=== PATIENT | female | born 1970 | race Caucasian/White ===

== ENCOUNTER 2016-11-07 14:24 | Emergency (ER) | payer BC ==
[~2016-11-07] VITALS: Ht 175.3 cm; Wt 127.1 kg
[2016-11-07 14:26] VITALS: TEMP 36.8; Ht 175.3 cm; Wt 127.1 kg
[2016-11-07] MEDS ORDERED: SODIUM CHLORIDE 0.9% 1000ML 2,000 ML IV STA (15:00)
[2016-11-07] MEDS ORDERED: ONDANSETRON INJ 2 MG/ML 2 ML VIAL IV STA (15:00)
[2016-11-07] MEDS ORDERED: KETOROLAC TROMETHAMINE 30 MG/ML VIAL IV STA (15:00)
[2016-11-07] MEDS ORDERED: MoRPHine SULFATE 4 MG/ML 1 ML CARP\\VIAL IV STA (15:00)
[2016-11-07] MEDS ORDERED: SODIUM CHLORIDE 0.9% 1000ML 1,000 ML IV STA (15:10)
[2016-11-07] MEDS ORDERED: GI COCKTAIL PO STA (15:11)
[2016-11-07 15:14] LABS: BASO ABS # 0.07 K/uL (0-0.2); COMPLETE YES; EOS % 5.5 %; HEMATOCRIT 40.9 % (37-47); IG% 0.1 %; LYMPH % 24.8 %; LYMPH ABS # 1.74 K/uL (1.2-3.4); MEAN CELL VOLUME 90.7 fL (80-100); MEAN CORPUSCULAR HEMOGLOBIN 30.6 pg (25-34); MEAN CORPUSCULAR HGB CONC 33.7 g/dl (32-36); MEAN PLATELET VOLUME 10.7 fL (7.4-10.4); MONO % 8.7 %; NEUT % 59.9 %; PLATELET COUNT 222 K/uL (130-400); RED BLOOD COUNT 4.51 M/uL (4.2-5.4); WHITE BLOOD COUNT 7.03 K/uL (4.8-10.8)
[2016-11-07] MEDS ORDERED: ALUMINUM/MAGNESIUM SUSP 30 ML UDC ONE (15:14)
[2016-11-07] MEDS ORDERED: LIDOCAINE HCL 2% VISC SOLN 20 ML UDC ONE (15:14)
[2016-11-07] MEDS ORDERED: METO25TA56 PO (15:21)
[2016-11-07] MEDS ORDERED: FURO-85 PO (15:21)
[2016-11-07] MEDS ORDERED: MULT-513 PO (15:21)
[2016-11-07 15:30] LABS: BUN/CREATININE RATIO 12.6 (10-20); CREATININE 0.98 mg/dl (0.60-1.20); POTASSIUM 3.9 mmol/L (3.5-5.1)
--- NOTE | 2016-11-07 15:49 | EMERGENCY ROOM VISIT NOTE ---
History Report prepared by Rich: Chuck Mendiola Under the Supervision of: Dr. John Nicholson D.O. First contact with patient: 14:50 Chief Complaint: GI ASSESSMENT Stated Complaint: PAIN WHEN EAT/DRINK, POSS. BLOCKAGE, GASTRIC BYPAS Nursing Triage Summary: per triage: pt c/o epigastric pain "burning sensation" after eating meals for past week. pt c/o worsening symptoms today. pt denies n/v/d. History of Present Illness The patient is a 46 year old female who presents to the Emergency Room with complaints of worsening epigastric pain that started around 6 days ago. She says that whenever she eats or drinks, she gets a stabbing pain below her breast bone, and the pain can get severe. The patient states that the pain started getting much worse 4 days ago, and she has stopped eating for the most part. She says that she has never had something like this before. The patient's last bowel movement was yesterday, and there have not been any major changes in her stool. She notes that she had a gastric bypass in 2011. The patient still has her gallbladder, appendix, and both her ovaries. She has no history of ulcers or an obstruction. The patient denies any vomiting. She has type 2 diabetes, and she says that her sugars tend to drop very rapidly. Source of History: patient Onset: 6 days ago Position: abdomen (epigastric) Quality: stabbing Timing: worsening Modifying Factors (Worsening): eating, drinking Associated Symptoms: No vomiting Note: Associated symptoms: Denies major changes in stool. Review of Systems See HPI for pertinent positives & negatives. A total of 10 systems reviewed and were otherwise negative. Past Medical & Surgical Medical Problems: (1) Diabetes (2) HTN (hypertension) (3) Kidney disease Surgical Problems: (1) History of gastric bypass Family History Diabetes mellitus FH: cancer FH: gallbladder disease FH: heart disease Hypertension Social History Smoking Status: Never Smoker Alcohol Use: none Drug Use: none Marital Status: Housing Status: lives with family Occupation Status: employed Current/Historical Medications Scheduled Famotidine (Pepcid), 20 MG PO DAILY Metoprolol Tartrate (Lopressor) (Lopressor), 25 MG PO BID Multivitamins/Minerals (Mvi With Minerals), 1 TAB PO DAILY Sucralfate (Carafate), 1 GM PO QID Scheduled PRN Furosemide (Lasix), 1 TAB PO DAILY PRN for edema Allergies Coded Allergies: No Known Allergies (Unverified , 12/07/10) Physical Exam Vital Signs Date Time Temp Pulse Resp B/P (MAP) Pulse Ox O2 Delivery O2 Flow Rate FiO2 11/07/16 18:58 50 18 161/75 98 11/07/16 17:14 48 18 178/94 100 Room Air 11/07/16 14:26 36.8 62 20 160/86 98 Room Air Physical Exam GENERAL: sitting up in bed, tearful, disheveled, in mild distress EYE EXAM: conjunctiva injected OROPHARYNX: no exudate, no erythema, lips, buccal mucosa, and tongue normal and mucous membranes are moist NECK: supple, no nuchal rigidity, no adenopathy, non-tender LUNGS: Clear to auscultation. Normal chest wall mechanics HEART: no murmurs, S1 normal and S2 normal ABDOMEN: abdomen soft, tender to palpation in epigastric region, normo-active bowel sounds, no masses, no rebound or guarding. BACK: Back is symmetrical on inspection and there is no deformity, no midline tenderness, no CVA tenderness. SKIN: no rashes and no bruising UPPER EXTREMITIES: upper extremities are grossly normal. LOWER EXTREMITIES: No pitting edema. NEURO EXAM: Normal sensorium, cranial nerves II-XII grossly intact, normal speech, no gross weakness of arms, no gross weakness of legs. Medical Decision & Procedures ER Provider Diagnostic Interpretation: Radiology results as stated below per my review and the radiologist's interpretation: CT SCAN OF THE ABDOMEN AND PELVIS WITH IV CONTRAST CLINICAL HISTORY: Epigastric abdominal pain. COMPARISON STUDY: No priors. TECHNIQUE: Following the IV administration of 94 cc of Optiray 320, CT scan of the abdomen and pelvis is performed from the lung bases to the proximal femora. Images are reviewed in the axial, sagittal, and coronal planes. IV contrast was administered without complication. Automated dose control exposure was utilized. The examination is degraded by large body habitus, and by streak artifact from the body wall abutting the CT gantry. CT DOSE: 1162.47 mGycm FINDINGS: Lung bases: The heart is normal in size and without pericardial effusion. A punctate calcified granuloma is seen at the left lung base. The lung bases are clear noting dependent atelectasis. Liver: The contrast-enhanced liver is normal in enlarged, measuring 23.2 cm in length. The liver demonstrates diffusely diminished attenuation consistent with hepatic steatosis. There is no intrahepatic biliary ductal dilatation. The hepatic veins and portal veins are patent. Gallbladder: The gallbladder is distended but otherwise normal as imaged. Spleen: The spleen is enlarged, measuring 14.5 cm in length. Pancreas: Unremarkable. Adrenal glands: Unremarkable. Kidneys: The contrast enhanced kidneys are normal in size and without hydronephrosis. The kidneys enhance symmetrically. Abdominal vasculature: The abdominal aorta is normal in course and caliber. Stomach and bowel: There are postoperative changes consistent with a Anton-en-Y gastric bypass surgery. No bowel obstruction is seen. There is a large ventral hernia containing nonobstructed small bowel. There is moderate colonic fecal retention. The appendix is well-visualized and normal. Peritoneum: There is no intraperitoneal free air or abdominal ascites. There is evidence of previous ventral hernia repair. Lymphadenopathy: None. Pelvic viscera: The bladder, uterus, and adnexa are normal as visualized noting an intrauterine device in place. There are small bilateral ovarian follicles. Skeletal structures: No lytic or blastic lesions are seen. The skeletal structures are osteopenic. There is mild lumbosacral spondylosis with postoperative changes from L4 to L5 fusion. IMPRESSION: 1. There are no acute infectious or inflammatory findings in the abdomen or pelvis. 2. Hepatomegaly and hepatic steatosis. 3. Splenomegaly. 4. The gallbladder is distended but otherwise normal as imaged. Correlation with clinical findings and serum bilirubin levels will be required. 5. There are postoperative changes consistent with a history of Anton-en-Y gastric bypass surgery. No bowel obstruction is seen. 6. There is a large ventral hernia containing a nonobstructed small bowel loop. 7. Additional findings as above. Electronically signed by: Lamonte Darnell M.D. 11/07/2016 5:10 PM Dictated Date/Time: 11/07/2016 5:04 PM ULTRASOUND RIGHT UPPER QUADRANT ABDOMEN CLINICAL HISTORY: Epigastric abdominal pain. COMPARISON STUDY: Abdominal CT dated 11/07/2016. TECHNIQUE: Real-time, grayscale, and color flow sonography of the right upper quadrant of the abdomen was performed. Images are reviewed in the transverse and longitudinal planes. FINDINGS: Liver: The liver is enlarged and demonstrates heterogeneously increased echotexture consistent with hepatic steatosis. There is no intrahepatic biliary ductal dilatation. The main portal vein is patent. Gallbladder: The gallbladder is distended. There are calcified, mobile, shadowing gallstones. There is no gallbladder wall thickening or pericholecystic fluid. A sonographic Suh's sign is reportedly absent. The common bile duct measures up to 0.5 cm in diameter. Pancreas: Visualized portions of the pancreatic head and body are normal in appearance. The splenic vein is patent. Right kidney: Survey images of the right kidney demonstrate normal size and echotexture. There is no hydronephrosis. Ascites: None. IMPRESSION: 1. Cholelithiasis without sonographic evidence of acute cholecystitis. 2. Hepatomegaly and mild hepatic steatosis. Electronically signed by: Lamonte Darnell M.D. 11/07/2016 6:13 PM Dictated Date/Time: 11/07/2016 6:11 PM Laboratory Results 11/07/16 15:02 Red Blood Count 4.51, Mean Corpuscular Volume 90.7, Mean Corpuscular Hemoglobin 30.6, Mean Corpuscular Hemoglobin Concent 33.7, Mean Platelet Volume 10.7, Neutrophils (%) (Auto) 59.9, Lymphocytes (%) (Auto) 24.8, Monocytes (%) (Auto) 8.7, Eosinophils (%) (Auto) 5.5, Basophils (%) (Auto) 1.0, Neutrophils # (Auto) 4.21, Lymphocytes # (Auto) 1.74, Monocytes # (Auto) 0.61, Eosinophils # (Auto) 0.39, Basophils # (Auto) 0.07 11/07/16 15:02 Test 11/07/16 15:02 11/07/16 16:20 White Blood Count 7.03 K/uL (4.8-10.8) Red Blood Count 4.51 M/uL (4.2-5.4) Hemoglobin 13.8 g/dL (12.0-16.0) Hematocrit 40.9 % (37-47) Mean Corpuscular Volume 90.7 fL (80-100) Mean Corpuscular Hemoglobin 30.6 pg (25-34) Mean Corpuscular Hemoglobin Concent 33.7 g/dl (32-36) Platelet Count 222 K/uL (130-400) Mean Platelet Volume 10.7 fL (7.4-10.4) Neutrophils (%) (Auto) 59.9 % Lymphocytes (%) (Auto) 24.8 % Monocytes (%) (Auto) 8.7 % Eosinophils (%) (Auto) 5.5 % Basophils (%) (Auto) 1.0 % Neutrophils # (Auto) 4.21 K/uL (1.4-6.5) Lymphocytes # (Auto) 1.74 K/uL (1.2-3.4) Monocytes # (Auto) 0.61 K/uL (0.11-0.59) Eosinophils # (Auto) 0.39 K/uL (0-0.5) Basophils # (Auto) 0.07 K/uL (0-0.2) RDW Standard Deviation 45.4 fL (36.4-46.3) RDW Coefficient of Variation 13.8 % (11.5-14.5) Immature Granulocyte % (Auto) 0.1 % Immature Granulocyte # (Auto) 0.01 K/uL (0.00-0.02) Anion Gap 6.0 mmol/L (3-11) Est Creatinine Clear Calc Drug Dose 104.8 ml/min Estimated GFR () 81.3 Estimated GFR (Non- 70.2 BUN/Creatinine Ratio 12.6 (10-20) Calcium Level 9.0 mg/dl (8.5-10.1) Total Bilirubin 0.7 mg/dl (0.2-1) Direct Bilirubin 0.2 mg/dl (0-0.2) Aspartate Amino Transf (AST/SGOT) 14 U/L (15-37) Alanine Aminotransferase (ALT/SGPT) 23 U/L (12-78) Alkaline Phosphatase 61 U/L (45-117) Total Protein 7.5 gm/dl (6.4-8.2) Albumin 3.6 gm/dl (3.4-5.0) Lipase 159 U/L (73-393) Urine Color YELLOW Urine Appearance CLEAR (CLEAR) Urine pH 5.5 (4.5-7.5) Urine Specific [place] 1.012 (1.000-1.030) Urine Protein NEG (NEG) Urine Glucose (UA) NEG (NEG) Urine Ketones TRACE (NEG) Urine Occult Blood NEG (NEG) Urine Nitrite NEG (NEG) Urine Bilirubin NEG (NEG) Urine Urobilinogen NEG (NEG) Urine Leukocyte Esterase NEG (NEG) Urine WBC (Auto) 0 /hpf (0-5) Urine RBC (Auto) 0-4 /hpf (0-4) Urine Hyaline Casts (Auto) 0 /lpf (0-5) Urine Epithelial Cells (Auto) 10-20 /lpf (0-5) Urine Bacteria (Auto) NEG (NEG) Urine Test NEG (NEG) Laboratory results per my review. Medications Administered Medications (Trade) Dose Ordered Sig/[place] Route Start Time Stop Time Status Last Admin Dose Admin Ondansetron HCl (Zofran Inj) 4 mg NOW STAT IV 11/07/16 15:00 11/07/16 15:02 DC 11/07/16 15:16 4 MG Morphine Sulfate (MoRPHine SULFATE INJ) 4 mg NOW STAT IV 11/07/16 15:00 11/07/16 15:02 DC 11/07/16 15:17 4 MG Sodium Chloride 1,000 ml @ 999 mls/hr Q1H1M STAT IV 11/07/16 15:10 11/07/16 16:10 DC 11/07/16 15:19 999 MLS/HR Miscellaneous Medication (Gi Cocktail) 24 ml NOW STAT PO 11/07/16 15:11 11/07/16 15:12 DC 11/07/16 15:17 24 ML ED Course ED COURSE: Vital signs were reviewed and showed hypertensive vitals. The patients medical record was reviewed The above diagnostic studies were performed and reviewed. ED treatments and interventions as stated above. 1500: Ordered Toradol Inj 30 mg IV, Morphine Sulfate Inj 4 mg IV, Zofran Inj 4 mg IV, NSS 2000 ml @ 999 mls/hr IV. 1503: The patient was evaluated in room B9. A complete history and physical examination was performed. 1511: Ordered GI Cocktail 24 ml PO. 1805: I reevaluated the patient and she is over at ultrasound. 1831: Upon reevaluation, the patient is feeling better.I discussed my findings with the patient and she understands and agrees with the treatment plan. Based on the patients age, coexisting illnesses, exam and lab findings the decision to treat as an outpatient was made. The patient remained stable while under my care. The patient appeared well at the time of discharge. Medical Decision Differential diagnoses includes but is not limited to gastritis, peptic ulcer disease, GERD, gallbladder disease, pancreatitis, small bowel obstruction, acute coronary syndrome, pericarditis, ischemic bowel, irritable bowel disease, irritable bowel syndrome, appendicitis, diverticulitis, malignancy, hernia, urinary tract infection, torsion, /ectopic , perforation, trauma, infectious. Blood pressure screening: Patient was found to have an elevated blood pressure and was referred to their primary doctor for recheck and further treatment. Medication Reconciliation: I attest that I have personally reviewed the patient' s current medication list. Patient is a 46-year-old female who presents the ER for epigastric abdominal pain which has been there since this past Thursday. He has been getting worse with eating and drinking. Pain does not migrate. Previous history of gastric sleeve and gastric bypass. No previous obstructions. No other surgeries. No vomiting. Normal bowel movements. CBC along with BMP, LFTs, bilirubin and lipase are normal. UA was negative. was negative. CT of abdomen pelvis was negative with exception of a distended gallbladder. Ultrasound shows stones but no pericholecystic fluid or gallbladder wall thickening. Her symptoms improved/resolved following a GI cocktail. I do favor this is likely secondary to gastritis or a gastric ulcer. Patient was updated bedside discharged follow-up with her primary care doctor, GI and her surgeon. Discussed with Pt concerning signs and symptoms to watch out for. Pt was instructed to follow up with their PCP and discussed with the patient their option to return to the ED at anytime for persistent or worsening symptoms. The appropriate anticipatory guidance and out-patient management, including indications for return to the emergency department, were explained at length to the patient and understood. Impression Primary Impression: Gastritis Additional Impression: Abdominal pain Scribe Attestation The scribe's documentation has been prepared under my direction and personally reviewed by me in its entirety. I confirm that the note above accurately reflects all work, treatment, procedures, and medical decision making performed by me. Departure Information Dispostion Home / Self-Care Prescriptions Sucralfate (CARAFATE) 1 Gm Tab 1 GM PO QID for 10 Days, #40 TAB Prov: John Nicholson, DO 11/07/16 Famotidine (Pepcid) 20 Mg Tab 20 MG PO DAILY, #20 TAB Prov: John Nicholson, DO 11/07/16 Referrals Nehemiah Hudson (PCP) Patrice Chung M.D. Forms HOME CARE DOCUMENTATION FORM, IMPORTANT VISIT INFORMATION Patient Instructions Abdominal Pain - [facility], ED PUD Vs Gastritis, My [facility] Additional Instructions Please follow up with your primary care doctor with in the next 24 hours. Any worsening of your symptoms, please return to the ED immediately. This includes blood in your stool, persistent nausea vomiting, worsening pain, unable to eat or drink, or any other concerning signs or symptoms from your standpoint. Please take Pepcid as prescribed. Please be sure to follow-up with GI and your surgeon. Problem Qualifiers Primary Impression: Gastritis Gastritis type: unspecified gastritis Chronicity: acute Gastritis bleeding : without bleeding Qualified Codes: K29.00 - Acute gastritis without bleeding Additional Impression: Abdominal pain Abdominal location: unspecified location Qualified Codes: R10.9 - Unspecified abdominal pain
[2016-11-07] MEDS ORDERED: OPTIRAY 320 IV PRN (16:15)
[2016-11-07 16:46] LABS: URINE APPEARANCE CLEAR (CLEAR); URINE BILIRUBIN NEG (NEG); URINE COLOR YELLOW; URINE NITRITE NEG (NEG); URINE PH 5.5 (4.5-7.5); URINE SPECIFIC GRAVITY 1.012 (1.000-1.030); UROBILINOGEN NEG (NEG); ZZUR CULT IF INDIC CLEAN CATCH NO
[2016-11-07 16:49] LABS: MANUAL MICROSCOPIC REQUIRED? NO; REVIEW REQ? NO
--- NOTE | 2016-11-07 17:12 | DIAGNOSTIC IMAGING REPORT ---
CT SCAN OF THE ABDOMEN AND PELVIS WITH IV CONTRAST CLINICAL HISTORY: Epigastric abdominal pain. COMPARISON STUDY: No priors. TECHNIQUE: Following the IV administration of 94 cc of Optiray 320, CT scan of the abdomen and pelvis is performed from the lung bases to the proximal femora. Images are reviewed in the axial, sagittal, and coronal planes. IV contrast was administered without complication. Automated dose control exposure was utilized. The examination is degraded by large body habitus, and by streak artifact from the body wall abutting the CT gantry. CT DOSE: 1162.47 mGycm FINDINGS: Lung bases: The heart is normal in size and without pericardial effusion. A punctate calcified granuloma is seen at the left lung base. The lung bases are clear noting dependent atelectasis. Liver: The contrast-enhanced liver is normal in enlarged, measuring 23.2 cm in length. The liver demonstrates diffusely diminished attenuation consistent with hepatic steatosis. There is no intrahepatic biliary ductal dilatation. The hepatic veins and portal veins are patent. Gallbladder: The gallbladder is distended but otherwise normal as imaged. Spleen: The spleen is enlarged, measuring 14.5 cm in length. Pancreas: Unremarkable. Adrenal glands: Unremarkable. Kidneys: The contrast enhanced kidneys are normal in size and without hydronephrosis. The kidneys enhance symmetrically. Abdominal vasculature: The abdominal aorta is normal in course and caliber. Stomach and bowel: There are postoperative changes consistent with a Anton-en-Y gastric bypass surgery. No bowel obstruction is seen. There is a large ventral hernia containing nonobstructed small bowel. There is moderate colonic fecal retention. The appendix is well-visualized and normal. Peritoneum: There is no intraperitoneal free air or abdominal ascites. There is evidence of previous ventral hernia repair. Lymphadenopathy: None. Pelvic viscera: The bladder, uterus, and adnexa are normal as visualized noting an intrauterine device in place. There are small bilateral ovarian follicles. Skeletal structures: No lytic or blastic lesions are seen. The skeletal structures are osteopenic. There is mild lumbosacral spondylosis with postoperative changes from L4 to L5 fusion. IMPRESSION: 1. There are no acute infectious or inflammatory findings in the abdomen or pelvis. 2. Hepatomegaly and hepatic steatosis. 3. Splenomegaly. 4. The gallbladder is distended but otherwise normal as imaged. Correlation with clinical findings and serum bilirubin levels will be required. 5. There are postoperative changes consistent with a history of Anton-en-Y gastric bypass surgery. No bowel obstruction is seen. 6. There is a large ventral hernia containing a nonobstructed small bowel loop. 7. Additional findings as above. Electronically signed by: Lamonte Darnell M.D. 11/07/2016 5:10 PM Dictated Date/Time: 11/07/2016 5:04 PM
--- NOTE | 2016-11-07 18:14 | DIAGNOSTIC IMAGING REPORT ---
ULTRASOUND RIGHT UPPER QUADRANT ABDOMEN CLINICAL HISTORY: Epigastric abdominal pain. COMPARISON STUDY: Abdominal CT dated 11/07/2016. TECHNIQUE: Real-time, grayscale, and color flow sonography of the right upper quadrant of the abdomen was performed. Images are reviewed in the transverse and longitudinal planes. FINDINGS: Liver: The liver is enlarged and demonstrates heterogeneously increased echotexture consistent with hepatic steatosis. There is no intrahepatic biliary ductal dilatation. The main portal vein is patent. Gallbladder: The gallbladder is distended. There are calcified, mobile, shadowing gallstones. There is no gallbladder wall thickening or pericholecystic fluid. A sonographic Suh's sign is reportedly absent. The common bile duct measures up to 0.5 cm in diameter. Pancreas: Visualized portions of the pancreatic head and body are normal in appearance. The splenic vein is patent. Right kidney: Survey images of the right kidney demonstrate normal size and echotexture. There is no hydronephrosis. Ascites: None. IMPRESSION: 1. Cholelithiasis without sonographic evidence of acute cholecystitis. 2. Hepatomegaly and mild hepatic steatosis. Electronically signed by: Lamonte Darnell M.D. 11/07/2016 6:13 PM Dictated Date/Time: 11/07/2016 6:11 PM
[2016-11-07] MEDS ORDERED: SUCR1TAB29 PO (18:50)
[2016-11-07] MEDS ORDERED: FAMO20TA11 PO (18:50)
[2016-11-07 18:58] VITALS: BP 161/75; PULSE 50; O2SAT 98
== END 2016-11-07 19:01 | disposition home or self-care (01) ==
LOC: C.EDB 14:25
DX: K29.00 Acute gastritis without bleeding (principal); R10.9 Unspecified abdominal pain; E11.9 Type 2 diabetes mellitus without complications; I10 Essential (primary) hypertension; N28.9 Disorder of kidney and ureter, unspecified; Z83.3 Family history of diabetes mellitus; Z82.49 Family history of ischemic heart disease and other diseases of the circulatory system